=== PATIENT | female | born 1965 | race Caucasian/White ===

== ENCOUNTER 2024-02-22 17:23 | Emergency (ER) | payer OTHER ==
[~2024-02-22] VITALS: Ht 154.9 cm; Wt 59.0 kg
[2024-02-22 17:27] VITALS: BP 80/55
[2024-02-22] MEDS ORDERED: OxyCODONE HCL 5 MG TAB PO ONE (17:50)
== END 2024-02-22 19:20 | disposition home or self-care (01) ==
LOC: ER 17:23
DX: S83.92XA Sprain of unspecified site of left knee, initial encounter (principal); W17.89XA Other fall from one level to another, initial encounter
CPT/HCPCS: 73502; 73562-LT; 99283-25; A9270

== ENCOUNTER → 2024-05-20 | Outpatient (CLI) | payer OTHER ==
[2024-05-27 12:00] LABS: HPV HIGH RISK BY TMA Not Detected; HPV SOURCE Cervical
== END ==
LOC: LAB 19:18 → LAB SHORT 19:18
PROVIDERS: Family Medicine
DX: Z01.419 Encounter for gynecological examination (general) (routine) without abnormal findings (principal)
CPT/HCPCS: 87624; G0123